=== PATIENT | female | born 1955 | race Caucasian/White ===

== ENCOUNTER 2018-10-11 17:45 | Emergency (ER) | payer BC ==
[~2018-10-11] VITALS: Ht 162.6 cm; Wt 79.4 kg
[2018-10-11 18:09] VITALS: BP_SYST 162
[2018-10-11] MEDS ORDERED: DIPH-TET-PERTUS Vaccine 0.5 ML VIAL (ADACEL) IM ONE (19:15)
[2018-10-11] MEDS ORDERED: BACITRACIN 1 GM OINT TP ONE (19:15)
[2018-10-11] MEDS ORDERED: LIDOCAINE 2%, 20 ML MDV IJ ONE (19:15)
[2018-10-11] MEDS ORDERED: LIDOCAINE 1% 10 MG/ML, 20 ML MDV IJ ONE (19:15)
[2018-10-11 20:06] VITALS: BP_SYST 162
== END 2018-10-11 20:06 | disposition home or self-care (01) ==
LOC: SED 17:45
DX: S62.617A Displaced fracture of proximal phalanx of left little finger, initial encounter for closed fracture (principal); S01.21XA Laceration without foreign body of nose, initial encounter; Z88.6 Allergy status to analgesic agent; W18.40XA Slipping, tripping and stumbling without falling, unspecified, initial encounter; Y93.89 Activity, other specified; Y92.89 Other specified places as the place of occurrence of the external cause; Y99.8 Other external cause status
CPT/HCPCS: 12011; 29125; 70486; 73130; 90471; 90715; 99284; J2001